=== PATIENT | female | born 1980 | race Two or more races ===

== ENCOUNTER 2025-02-24 00:04 | Emergency (ER) | payer MEDICAID, SELFPAY ==
[2025-02-24 00:04] VITALS: BMI 37.8
[2025-02-24 00:16] VITALS: BP 164/97; PULSE 82; RESP 20; TEMP 36.8; O2SAT 99
[2025-02-24] MEDS: NAPROXEN 250 MG TABLET 500 MG PO (00:32)
--- NOTE | 2025-02-24 00:44 | PD.EDEAR ---
ED Ear RME/HPI General Chief complaint: Ear Stated complaint: LEFT EAR PAIN X4 DAYS Time Seen by Provider: 02/24/25 00:22 Arrival date/time: 02/24/25 00:04 44F with seizures presents to ED with 4 days of L ear pain. Patient denies cough. Limitations: no limitations Related Data Home Medications ?Medication ?Instructions ?Recorded ?Confirmed levetiracetam 500 mg tablet 500 mg PO BID 11/26/21 11/26/21 Previous Rx's ?Medication ?Instructions ?Recorded azithromycin 500 mg tablet See Rx Instructions PO .COMPLEX #6 11/26/21 tabs ibuprofen 800 mg tablet 800 mg PO TID PRN pain #30 tabs 11/26/21 amoxicillin 875 mg tablet 875 mg PO BID 5 days #10 tabs 02/24/25 [id number]-zjjowvtkx 3.5 4 drp otic (ear) QID 10 days #10 mL 02/24/25 mg-10,000 unit/mL-1 % ear drops,susp Allergies Allergy/AdvReac Type Severity Reaction Status Date / Time codeine Allergy Severe RASH, Verified 11/22/22 09:29 VOMITING Review of Systems Review of Systems Systems Reviewed: All systems reviewed, normal except as documented Constitutional Constitutional: Reports system reviewed and no additional complaints, except as documented, Denies fever(s) and Denies headache(s) ENT Ears, Nose, Mouth, and Throat: Reports as per HPI, Denies disequilibrium, Reports otalgia and Denies headache(s) Cardiovascular Cardiovascular: Reports system reviewed and no additional complaints, except as documented, Denies chest pain and Denies dyspnea Respiratory Respiratory: Reports system reviewed and no additional complaints, except as documented, Denies cough and Denies dyspnea Gastrointestinal Gastrointestinal: Reports system reviewed and no additional complaints, except as documented, Denies abdominal pain, Denies nausea and Denies vomiting Neurologic Neurologic: Reports system reviewed and no additional complaints, except as documented, Denies confusion, Denies disequilibrium and Denies headache(s) Psychiatric Psychiatric: Denies confusion Past Medical History Past Medical History NEUROLOGIC: Positive Seizures CARDIAC: Negative Cardiac Disorders or Congestive Heart Failure RESPIRATORY: Negative Chronic Obstructive Pulmonary Disease (COPD) or Asthma GASTROINTESTINAL: Positive Gastrointestinal Disorders and Diverticulitis GENITOURINARY: Negative Renal Disease ENDOCRINE: Negative Diabetes Mellitus Type 1 or Diabetes Mellitus Type 2 HEMATOLOGIC: Negative Sickle Cell Disease Social History SMOKING STATUS: Never smoker ED Exam General Limitations: Present no limitations General appearance: Present alert and in no apparent distress Head Head exam: Present atraumatic Eye Eye exam: Present normal appearance, PERRL and EOMI ENT ENT exam: Present mucous membranes moist Expanded ENT Exam External ear exam: Present external tenderness (L tragal) TM/Canal exam: Left TM: canal discharge and canal tenderness Neck Neck exam: Present normal inspection, full ROM and trachea midline Chest Chest inspection: Present normal inspection and symmetric chest wall rise Respiratory Respiratory exam: Present normal lung sounds bilaterally Cardiovascular Cardiovascular exam: Present regular rate, normal rhythm and normal heart sounds Abdominal Exam Abdominal exam: Present soft and normal bowel sounds Extremities Exam Extremities exam: Present normal inspection and full ROM Back Exam Back exam: Present normal inspection and full ROM Neurological Exam Neurological exam: Present alert, oriented X3 and CN II-XII intact Psychiatric Psychiatric exam: Present normal affect and normal mood Skin Skin exam: Present warm, dry, intact and normal color Course Quality Measures none Orders Category Date Time Status Naproxen [Naprosyn] Med 02/24/25 00:23 Discontinued 500 mg PO X1 ONE Vital Signs Vital signs: Vital Signs Temperature 98.3 F 02/24/25 00:16 Pulse Rate 82 02/24/25 00:16 Respiratory Rate 20 02/24/25 00:16 Blood Pressure 164/97 H 02/24/25 00:16 Pulse Oximetry (%) 99 02/24/25 00:16 Oxygen Delivery Method Room Air 02/24/25 00:16 O2 at 99% on RA and WNLs Ear MDM Narrative MDM Narrative:: 44F with seizures presents to ED with 4 days of L ear pain. Patient denies cough. Physical exam reveals L tragal tenderness and canal swelling. L TM no visualized. R ear exam normal. Patient is afebrile, calm, and alert. Likely OE, and will also cover for OM. Patient data External records reviewed:: [facility] previous records Clinical information provided by:: patient Social determinants that could affect healthcare access:: none Patient has the following chronic illnesses:: seizures How is presenting disease/condition affected by chronic disease/condition?: uneffected by Evaluation data The following diagnostics were reviewed and interpreted by me:: other (specify) (none) Lab and/or radiology exams considered but not ordered:: not ordered Interpretation Summary: n/a Medications / Prescriptions Medications or Prescriptions considered but not ordered:: ordered Medication administrations:: Medication Administration History Discontinued Medications Naproxen (Naproxen 250 Mg Tablet) 500 mg PO X1 ONE Stop: 02/24/25 00:24 Last Admin: 02/24/25 00:32 Dose: 500 mg Documented By: above Consultations Consultation(s) initiated? (list below): No Diagnosis Ear Differential Diagnosis: otitis externa, otitis media, foreign body in ear, ruptured TM and cerumen impaction Most likely diagnosis given after review of the tests above:: OM and OE Admission Indicated Admission indicated?: not indicated Admission Request Was there a request for admission?: No Disposition Plan Disposition Plan: Discharge Discharge Attestation Discharge Attestation: The patient and all family members were given an opportunity to ask questions and understood the discharge instructions. Discharge instructions specifically effects, indications for sooner follow up or return to the emergency department, and the expected course of current diagnosis. Patient condition: Stable Discharge Plan Plan Patient Disposition: HOME (Self Care) Disposition Comment: Stable Prescriptions/Referrals Prescriptions/Med Rec: New vjqesqba-hdfwemttp-YV 3.5-10,000-1 mg/mL-unit/mL-% drops,suspension 4 drp otic (ear) QID 10 Days Qty: 10 0RF amoxicillin 875 mg tablet 875 mg PO BID 5 Days Qty: 10 0RF No Action levetiracetam 500 mg tablet 500 mg PO BID ibuprofen 800 mg tablet 800 mg PO TID PRN (Reason: pain) Qty: 30 0RF azithromycin 500 mg tablet See Rx Instructions .ROUTE .COMPLEX Qty: 6 0RF Rx Instructions: take 500 mg today (day 1), then 250 mg for 4 days (days 2-5) Problem List Clinical Impression: Otitis externa, Otitis media Patient/Caregiver Discharge Instructions Education Materials: ED Otitis Media Antibiotic ..., ED External Ear Infection (Adult) Additional Instructions: Please follow-up with PCP within 24-48 hours and return immediately if symptoms worsen. Keep drops in ear at least 1 min each time. Print Language: Hungarian Stand Alone Forms: Patient Portal Info Letter PA/ARCHERY INSTRUCTOR Supervising Physician OFELIA/ARCHERY INSTRUCTOR Supervising Physician: Dr. Pickard
== END 2025-02-24 00:35 | disposition home or self-care (01) ==
LOC: SERX 00:37
PROVIDERS: Emergency Provider Emergency Medicine; PCP Registered Nurse Community Health
DX: H60.92 Unspecified otitis externa, left ear (principal); H66.92 Otitis media, unspecified, left ear
CPT/HCPCS: 99282; A9270

== ENCOUNTER 2025-06-29 07:34 | Emergency (ER) | payer MEDICAID, SELFPAY ==
[2025-06-29 07:35] VITALS: BMI 37.8
[2025-06-29 07:44] VITALS: BP 141/85; PULSE 84; RESP 16; TEMP 36.9; O2SAT 98
--- NOTE | 2025-06-29 08:00 | EDNOTE_ITS ---
<Statement entered by Serena Sun MD - 06/29/25 12:11> As co-signing physician, I was present and available for consult prn. I concur with the plan and care as documented by the midlevel provider. ED Dizzyness RME/HPI General Chief Complaint: Dizziness Stated Complaint: FEELING DIZZY, CHEST HURTS, THROAT PAIN Time Seen by Provider: 06/29/25 08:00 Source: patient Arrival date/time: 06/29/25 07:34 Mode of arrival: ambulatory Limitations: no limitations RME / HPI RME / HPI Narrative: 44-year-old female presents to ED with complaint of lightheadedness as well as a sore throat and chest pain that began 2 days ago. Patient describes her chest pain as intermittent and sharp. Patient is a type II diabetic with a history of hypertension. complaint: lightheadedness Onset (ago): day(s) (2 days) Timing: sudden onset Severity: moderate Related Data Home Medications ?Medication ?Instructions ?Recorded ?Confirmed levetiracetam 500 mg tablet 500 mg PO BID 11/26/2101/16 Previous Rx's ?Medication ?Instructions ?Recorded azithromycin 500 mg tablet See Rx Instructions PO .COM PLEX #6 11/26/21 tabs ibuprofen 800 mg tablet 800 mg PO TID PRN pain #30 t abs 11/26/21 Allergies Allergy/AdvReac Type Severity Reaction Status Date / Time codeine Allergy Severe RASH, Verified 06/29/25 07:38 VOMITING Review of Systems Constitutional Constitutional: Reports system reviewed and no additional complaints, except as documented Eyes Eyes: Reports system reviewed and no additional complaints, except as documented, Denies dry eyes, Denies exophthalmos and Reports floaters Cardiovascular Cardiovascular: Denies chest pain with activity and Denies claudication ED Exam Narrative Physical exam: Patient is in no apparent distress cardiac respiratory or otherwise. Heart is regular rhythm and rate without murmurs. The distal extremities are not edematous. Posterior pharynx is hyperemic and injected. General Limitations: Present no limitations General appearance: Present alert and in no apparent distress Head Head exam: Present atraumatic Eye Eye exam: Present normal appearance, PERRL and EOMI ENT ENT exam: Present normal exam, normal oropharynx and mucous membranes moist Neck Neck exam: Present normal inspection, full ROM and trachea midline Chest Chest inspection: Present normal inspection and symmetric chest wall rise Respiratory Respiratory exam: Present normal lung sounds bilaterally Cardiovascular Cardiovascular exam: Present regular rate, normal rhythm and normal heart sounds Abdominal Exam Abdominal exam: Present soft and normal bowel sounds Rectal Exam Rectal exam: Present deferred Extremities Exam Extremities exam: Present normal inspection and full ROM Back Exam Back exam: Present normal inspection and full ROM Neurological Exam Neurological exam: Present alert and oriented X3 Psychiatric Psychiatric exam: Present normal affect and normal mood Skin Skin exam: Present warm, dry, intact and normal color Course Course Course Narrative: Patient will have a EKG, troponin, CMP, CBC, UA and a rapid strep. Quality Measures none (N/A) Orders Category Date Time Status EKG (ED ONLY) *Do not use* NOW Care 06/29/25 08:05 Completed EKG (ED Only) Stat Exams 06/29/25 08:04 Draft CBC Stat Lab 06/29/25 08:09 Completed CMP [Comprehensive Metabolic Panel] Stat Lab 06/29/25 08:09 Completed Strep A Rapid Stat Lab 06/29/25 08:20 Completed UA, C/S IF [Urinalysis, C/S if Indicated] Stat Lab 06/29/25 08:25 Completed N/A Vital Signs Vital signs: Vital Signs Temperature 98.5 F 06/29/25 07:44 Pulse Rate 84 06/29/25 07:44 Respiratory Rate 16 06/29/25 07:44 Blood Pressure 141/85 H 06/29/25 07:44 Pulse Oximetry (%) 98 06/29/25 07:44 Oxygen Delivery Method Room Air 06/29/25 07:44 Pulse ox is 98% Dizziness MDM Narrative MDM Narrative:: Patient will be informed that she has COVID and she will be discharged in no apparent distress. She has to follow-up with primary care physician within a week of today's date. She may return if she is worse or not better. Patient data External records reviewed:: Other (specify) (NA) Clinical information provided by:: patient Social determinants that could affect healthcare access:: none (NA) Patient has the following chronic illnesses:: Hypertension and diabetes type 2 How is presenting disease/condition affected by chronic disease/condition?: uneffected by Evaluation data The following diagnostics were reviewed and interpreted by me:: lab results (Positive for COVID) Lab and/or radiology exams considered but not ordered:: COVID POSITIVE Interpretation Summary: N/A Medications / Prescriptions Medications or Prescriptions considered but not ordered:: NA Medication administrations:: NA Consultations Consultation(s) initiated? (list below): No Diagnosis Dizziness Differential Diagnosis: adverse reaction to drug, benign paroxysmal positional vertigo, orthostatic hypotension and vertebral basilar insufficiency Most likely diagnosis given after review of the tests above:: NA Admission Indicated Admission indicated?: not indicated Admission Request Was there a request for admission?: No Admission Attestation Admission request attestation: NA Disposition Plan Disposition Plan: Discharge Discharge Attestation Discharge Attestation: The patient and all family members were given an opportunity to ask questions and understood the discharge instructions. Discharge instructions specifically effects, indications for sooner follow up or return to the emergency department, and the expected course of current diagnosis. Patient condition: Stable Discharge Plan Plan Patient Disposition: HOME (Self Care) Discharge Disposition comment: Apparent distress Patient condition on transfer: Stable Prescriptions/Referrals Prescriptions/Med Rec: No Action levetiracetam 500 mg tablet 500 mg PO BID ibuprofen 800 mg tablet 800 mg PO TID PRN (Reason: pain) Qty: 30 0RF azithromycin 500 mg tablet See Rx Instructions .ROUTE .COMPLEX Qty: 6 0RF Rx Instructions: take 500 mg today (day 1), then 250 mg for 4 days (days 2-5) Referrals: Opal Ramsay FNP-C [Primary Care Provider] - In 1 week Problem List Clinical Impression: COVID-19 Patient/Caregiver Discharge Instructions Discharge Activity: activity as tolerated Print Language: Sinhala Stand Alone Forms: [facility]ne Award Info., Patient Portal Info Letter SONIA Supervising Physician SONIA Supervising Physician: NIR
--- NOTE | 2025-06-29 08:04 | EKG_ITS ---
[facility] Test Date: 2025-06-29 Pat Name: DANIELLE LEON Department: Room: - Gender: Female [employer] Counselor: : 1980 Requested By: aPrminder Thomas Order Number: [id number] Reading MD: Parminder Thomas Measurements Intervals [place] Rate: 86 P: 20 NH: 152 QRS: 26 QRSD: 88 T: 12 QT: 358 QTc: 430 Interpretive Statements SINUS RHYTHM Compared to ECG 11/22/2022 09:55:30 No significant changes /store/S0/[id number]
[2025-06-29 08:16] LABS: Basophils # (Auto) 0.1 Thou/mm3 (0.0-0.2); Basophils % (Auto) 1 % (0-2.5); Eosinophils # (Auto) 0.1 Thou/mm3 (0.0-0.5); Eosinophils % (Auto) 1 % (0-10); Hematocrit 43.1 % (36.0-46.0); Hemoglobin 14.1 g/dL (12.0-16.0); Immature Granulocytes Auto 0.03 Thou/mm3 (0.00-0.00); Lymphocytes # (Auto) 2.6 Thou/mm3 (1.0-4.8); Lymphocytes % (Auto) 26 % (10-50); Mean Corpuscular HGB Conc 32.7 g/dl (31.0-37.0); Mean Corpuscular Hemoglobin 27.8 pg (25.0-35.0); Mean Corpuscular Volume 85 fL (80-100); Monocytes # (Auto) 0.7 Thou/mm3 (0.0-0.8); Monocytes % (Auto) 7 % (0-12); Neutrophils # (Auto) 6.6 Thou/mm3 (1.8-7.7); Neutrophils % (Auto) 65 % (37-80); Nucleated Red Blood Cell # 0.00 Thou/mm3 (0.00-0.00); Nucleated Red Blood Cell % 0 /100 WBC (0); Platelet Count 295 Thou/mm3 (140-440); RDW Standard Deviation 46.5 fL (36.4-46.3); Red Blood Count 5.07 Miln/mm3 (4.00-5.20); White Blood Count 10.1 Thou/mm3 (3.6-11.0)
[2025-06-29 08:38] LABS: Alanine Aminotransferase 23 U/L (10-49); Albumin, Serum 4.5 gm/dL (3.5-5.0); Albumin/Globulin Ratio 1.4 (1.2-2.2); Alkaline Phosphatase 77 U/L (46-116); Anion Gap 8 (7-16); Aspartate Amino Transferase 23 U/L (0-34); BUN/Creatinine Ratio 15 Ratio (12-20); Bilirubin,Total 0.4 mg/dL (0.3-1.2); Blood Urea Nitrogen 12 mg/dL (9-23); Calcium 9.4 mg/dL (8.3-10.6); Calcium (Corrected) 9.4 mg/dL (8.5-10.1); Carbon Dioxide 27.0 mMol/L (20.0-31.0); Chloride 103 mMol/L (98-107); Creatinine (Component) 0.8 mg/dL (0.6-1.3); Estimated Creatinine Clearance 91.1 mL/min (>60); Globulin 3.3 gm/dL (2.3-3.5); Glucose 125 mg/dL (74-106); Osmolality,Calculated 276 (275-295); Potassium 4.3 mMol/L (3.4-5.1); Sodium 138 mMol/L (136-145); Total Protein 7.8 gm/dL (5.7-8.2); eGFR > 60 See Note
[2025-06-29 08:46] LABS: Collection Type, Urine Clean Catch
[2025-06-29 08:56] LABS: Bilirubin,Urine Negative (Negative); Blood,Urine Negative (Negative); Clarity,Urine Clear (Clear/Hazy); Color,Urine Lt-Yellow (Lt Yel-Yel); Culture Indicated,Urine Not Indicated; Glucose, Urine Negative (Negative); Ketones,Urine Negative (Negative); Leukocyte Esterase,Urine Negative (Negative); Nitrite,Urine Negative (Negative); PH,Urine 7.0 (5.0-7.0); Protein,Urine Negative (Neg - Trace); RBC,Urine 1 /hpf (0-3); Specific Gravity,Urine 1.020 (1.001-1.035); Squamous Epithelial Cell,Urine 10 /hpf (0-5); Urobilinogen,Urine Negative mg/dL (0.0-1.0); WBC,Urine < 1 /hpf (0-5)
[2025-06-29 09:23] LABS: Strep A Rapid Negative (Negative)
== END 2025-06-29 11:40 | disposition home or self-care (01) ==
PROVIDERS: Physician Assistant; Emergency Provider Emergency Medicine
DX: U07.1 COVID-19 (principal); R42 Dizziness and giddiness; I10 Essential (primary) hypertension
CPT/HCPCS: 36415; 80053; 81001; 85025; 87400; 87502; 87651; 87811; 93005; 99283